=== PATIENT | female | born 1965 | race Caucasian/White ===

== ENCOUNTER 2018-01-30 11:32 | Emergency (ER) | payer BC ==
[2018-01-30 12:23] VITALS: BP 156/73
--- NOTE | 2018-01-30 12:41 | ED ---
Upper Extremity Pain - HPI Summary HPI Summary: 53 yr old female with the complaint of posterior neck pain. Onset a couple of weeks ago and progressively worse, radiates down into her right shoulder and into her fingers with associated tingling. Made worse after she lifted 280 pound significant other off floor when he fell last week. She has had disks removed in C spine in the past. She states feels like a problem with her neck again. No bowel, bladder incontinence. No weakness in legs or numbness in legs. - History of Current Complaint Chief Complaint: UCBackPain Stated Complaint: RT SHOULDER Time Seen by Provider: 01/30/18 12:26 Hx Last Menstrual Period: 10yrs - Allergies/Home Medications Allergies/Adverse Reactions: Allergies Allergy/AdvReac Type Severity Reaction Status Date / Time Penicillins Allergy Rash Verified 01/30/18 12:03 Home Medications: Home Medications Naproxen Sodium [Aleve] 2 tab PO BID PRN 01/30/18 [History Confirmed 01/30/18] PMH/Surg Hx/FS Hx/Imm Hx Psychiatric History: Reports: Hx Depression - Surgical History Surgery Procedure, Year, and Place: cervical discs. UPPER AND LOWER ENDOSCOPY Infectious Disease History: No Infectious Disease History: Denies: Traveled Outside the [place] in Last 30 Days - Family History Known Family History: Positive: Cardiac Disease, Hypertension - Social History Lives: With Family Alcohol Use: Weekly Substance Use Type: Reports: None Smoking Status (MU): Heavy Every Day Tobacco Smoker Amount Used/How Often: 3/4ppf Review of Systems Negative: Fever, Chills Positive: Other - posterior neck pain, and radicular pain, and tingling to right fingers. Negative: Headache, Weakness All Other Systems Reviewed And Are Negative: Yes Physical Exam Triage Information Reviewed: Yes Vital Signs On Initial Exam: Initial Vitals Temp Pulse Resp BP Pulse Ox 99.1 F 81 16 156/73 100 01/30/18 12:17 01/30/18 12:17 01/30/18 12:17 01/30/18 12:17 01/30/18 12:17 Vital Signs Reviewed: Yes Appearance: Positive: Well-Appearing, No Pain Distress Skin: Positive: Warm, Skin Color Reflects Adequate Perfusion Head/Face: Positive: Normal Head/Face Inspection Eyes: Positive: EOMI ENT: Positive: Normal ENT inspection Neck: Positive: Nontender. Negative: Nuchal Rigidity Respiratory/Lung Sounds: Positive: Clear to Auscultation, Breath Sounds Present Cardiovascular: Positive: RRR. Negative: Murmur Abdomen Description: Positive: Nontender Musculoskeletal: Positive: Strength/ROM Intact Neurological: Positive: Sensory/Motor Intact, Alert, Oriented to Person Place, Time, CN Intact II-III, Normal Gait, Speech Normal Psychiatric: Positive: Normal - Horacio Coma Scale Best Eye Response: 4 - Spontaneous Best Motor Response: 6 - Obeys Commands Best Verbal Response: 5 - Oriented Coma Scale Total: 15 Diagnostics - Vital Signs Vital Signs Temp Pulse Resp BP Pulse Ox 01/30/18 12:17 99.1 F 81 16 156/73 100 - Laboratory Lab Statement: Any lab studies that have been ordered have been reviewed, and results considered in the medical decision making process. Course/Dx - Course Course Of Treatment: 53 yr old female with radicular neck pain into right upper extremitiy, and some tingling in fingers at times with this. I recommend she go to the ER from here for MRI C spine and further work up. She did not want an ambulance for transport. She states she can drive fine and that she is going to get her daughter to drop her off at the ER in [place] for further work up after discharge from here. - Diagnoses Provider Diagnoses: Radiculopathy of cervical spine, Hypertension Discharge - Sign-Out/Discharge Documenting (check all that apply): Discharge - Discharge Plan Condition: Good Disposition: [facility] Patient Education Materials: Hypertension (ED), Cervical Radiculopathy (ED), Neck Pain (ED) Referrals: GENNY Reardon [Primary Care Provider] - Additional Instructions: You need to go to [place] ER upon discharge from here for further work up of your cervical spine, and right arm pain. - Billing Disposition and Condition Condition: GOOD Disposition: [facility]A
== END 2018-01-30 13:00 | disposition home or self-care (01) ==
LOC: UCCORT 11:32
DX: M54.12 Radiculopathy, cervical region (principal); I10 Essential (primary) hypertension; F17.200 Nicotine dependence, unspecified, uncomplicated; Z88.0 Allergy status to penicillin
CPT/HCPCS: 99212; G0463